=== PATIENT | female | born 1965 | race Caucasian/White ===

== ENCOUNTER 2017-09-20 12:27 | Day surgery (SDC) | payer OTHER ==
[2017-09-20 13:28] LABS: Absolute Lymphocytes (CBC) 1.7 K/uL (0.7-4.9); Absolute Monocytes 0.7 K/uL (0.1-1.3); Basophils % 0.4 % (0-1.3); Eosinophils % 1.6 % (0-4.4); Hematocrit 43.1 % (36.0-45.0); Lymphocytes % 17.2 % (15.3-44.8); MCH 30.6 pg (27.0-35.0); MCV 90.1 fL (80-100); MPV 8.5 fL (7.6-11.3); Monocytes % 7.8 % (3.3-12.3); RBC Red Blood Cell Count 4.78 M/uL (3.86-4.86)
[2017-09-20] MEDS ORDERED: KETOROLAC 30 MG/ML INJ ONE (13:36)
[2017-09-20 13:52] LABS: Urine Blood TRACE (NEG); Urine Glucose NEGATIVE (NEG); Urine Protein NEGATIVE (NEG)
[2017-09-20 14:08] LABS: Urine Bacteria 20-50 /HPF (<20)
[2017-09-20 14:09] LABS: Urine Culture Reflex Order NOT NEEDED
--- NOTE | 2017-09-20 14:10 | RAD REPORT ---
EXAM DESCRIPTION: CT - Stone Protocol - 09/20/2017 2:02 pm CLINICAL HISTORY: Left flank pain, history of kidney stones COMPARISON: None. TECHNIQUE: Axial 5 mm thick images were obtained without oral or IV contrast. The [id number] span s the entirety of the system partially obscuring uppermost abdomen and lung bases. All CT scans are performed using dose optimization technique as appropriate and may include automated exposure control or mA/KV adjustment according to patient size. FINDINGS: Moderate hydronephrosis of the left pelvis and calices secondary to an 11 millimeter UPJ c alculus. Left kidney is edematous with stranding in the adjacent fat. No other left-sided obstructing or nonobstructing calculi. Right kidney shows several 2- 3 millimeter sized caliceal calcifications. No right-sided hydronephrosis. No right-sided perinephric stranding. No suspicious renal masses. Iso dense masses and pyelonephritis are not excluded on a stone protocol CT scan. Urinary bladder is cont racted. No bladder calculi seen. Imaged portions of the liver, spleen and pancreas show no suspicious findings on non-contrast imaging . No gallbladder or biliary tree abnormality identified. No significant adrenal finding. No suspicious bowel findings. Uterus and ovaries show no suspicious findings. No hernia, mass or bulky lymphadenopathy noted. No free air, free fluid or inflammatory stranding. No significant bony abnormality. IMPRESSION: Moderate left-sided hydronephrosis of the pelvis and calices secondary to an 11 millimet er UPJ calculus. Isodense masses and pyelonephritis are not excluded on stone protocol technique.
[2017-09-20] MEDS ORDERED: FENTANYL CITR 100 MCG/2 ML ONE ×2 (14:16→16:25)
[2017-09-20 14:31] LABS: Albumin 4.5 g/dL (3.2-5.5); Bilirubin Direct 0.1 mg/dL (0-0.2); Bilirubin Total 0.8 mg/dL (0.3-1.2); Protein, Total 7.7 g/dL (6.0-8.3)
[2017-09-20] MEDS ORDERED: CEFTRIAXONE/SWI 1gm 1 GM/10 ML SYR ONE (14:32)
[2017-09-20] MEDS ORDERED: ONDANSETRON 4 MG/2 ML VIAL IV PRN (15:18)
[2017-09-20] MEDS ORDERED: ACETAMINOPHEN 500 MG TAB PO PRN (15:18)
--- NOTE | 2017-09-20 15:22 | ER ---
Nurse's Notes [facility] Name: Elisabeth Calvert Age: 51 yrs Sex: Female : 1965 Arrival Date: 09/20/2017 Time: 12:30 Bed 6 Private MD: Unknown, Unknown Diagnosis: Urinary tract infection, site not specified;Hydronephrosis with renal and ureteral calculous obstruction Presentation: 09/20 12:44 Presenting complaint: Patient states: Left flank pain that started suddenly this AM aj with nausea. Denies blood in urine. Transition of care: patient was not received from another setting of care. Onset of symptoms was September 20, 2017. Care prior to arrival: None. 12:44 Method Of Arrival: Ambulatory aj 12:44 Acuity: KENDAL 3 aj 13:10 Risk Assessment: Do you want to hurt yourself or someone else? Patient reports no sg desire to harm self or others. Initial Sepsis Screen: Does the patient meet any 2 criteria? No. Patient's initial sepsis screen is negative. Does the patient have a suspected source of infection? No. Patient's initial sepsis screen is negative. Triage Assessment: 12:45 General: Appears in no apparent distress. uncomfortable, Behavior is calm, cooperative, aj appropriate for age. Pain: Complains of pain in posterior aspect of left lateral abdomen and anterior aspect of left lateral abdomen. Neuro: Level of Consciousness is awake, alert, obeys commands, Oriented to person, place, time, situation, Appropriate for age. Respiratory: Reports shortness of breath Airway is patent Respiratory effort is even, unlabored, Respiratory pattern is regular, symmetrical, Onset: The symptoms/episode began/occurred gradually, the patient reports symptoms have resolved. GI: Reports nausea. : Reports pain in left flank(s). Derm: Skin is intact, is healthy with good turgor, Skin is pink, warm \T\ dry. normal. 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 - Social history:: Smoking status: Patient/guardian denies using tobacco. - Ebola Screening: : Patient negative for fever greater than or equal to 101.5 degrees Fahrenheit, and additional compatible Ebola Virus Disease symptoms Patient denies exposure to infectious person Patient denies travel to an Ebola-affected area in the 21 days before illness onset No symptoms or risks identified at this time. Screenin:50 Abuse screen: Denies threats or abuse. Denies injuries from another. Nutritional sg screening: No deficits noted. Tuberculosis screening: No symptoms or risk factors identified. Never had TB. Fall Risk None identified. Assessment: 13:37 Reassessment: Patient and/or family updated on plan of care and expected duration. Pain aa5 level reassessed. Patient is alert, oriented x 3, equal unlabored respirations, skin warm/dry/pink. call smith within reach, side rails x 1, bed in low position. . 14:25 General: Appears in no apparent distress. uncomfortable, well groomed, well developed, sg well nourished, Behavior is calm, cooperative, appropriate for age. Pain: Complains of pain in left flank and posterior aspect of left lateral abdomen. Neuro: No deficits noted. Cardiovascular: Heart tones S1 S2 present Capillary refill is brisk in bilateral fingers Patient's skin is warm and dry. Rhythm is sinus rhythm Chest pain is denied. Respiratory: Airway is patent Respiratory effort is even, unlabored, Respiratory pattern is regular, symmetrical, Breath sounds are clear. GI: No signs and/or symptoms were reported involving the gastrointestinal system. : Reports pain in left flank(s). EENT: No signs and/or symptoms were reported regarding the EENT system. Derm: Skin is pink, warm \T\ dry. Musculoskeletal: No signs and/or symptoms reported regarding the musculoskeletal system. 14:30 Reassessment: Patient appears in no apparent distress at this time. Patient and/or sg family updated on plan of care and expected duration. Pain level reassessed. Patient is alert, oriented x 3, equal unlabored respirations, skin warm/dry/pink. Patient states symptoms have not improved. 15:30 Reassessment: Patient appears in no apparent distress at this time. Patient and/or sg family updated on plan of care and expected duration. Pain level reassessed. Patient is alert, oriented x 3, equal unlabored respirations, skin warm/dry/pink. Patient states feeling better. 15:45 Reassessment: pt contacted per request, called , spke sg with updated on POC and need for sx today per , reports he is on his way back to facility, pt updated. Vital Signs: 12:45 BP 151 / 77; Pulse 69; Resp 17; Temp 97.6; Pulse Ox 99% on R/A; Weight 92.99 kg; Height aj 5 ft. 8 in. (172.72 cm); Pain 5/10; 12:45 Body Mass Index 31.17 (92.99 kg, 172.72 cm) aj ED Course: 12:30 Patient arrived in ED. sb2 12:31 Unknown, Unknown is Private Physician. sb2 12:45 Triage completed. aj 12:45 Arm band placed on left wrist. Patient placed in an exam room. aj 12:48 Jasiel Cárdenas PA is PHCP. jr8 12:48 Jeffrey Milian MD is Attending Physician. jr8 13:10 Patient has correct armband on for positive identification. Bed in low position. Call sg light in reach. Side rails up X2. Pulse ox on. NIBP on. Warm blanket given. Head of bed elevated. 13:23 Initial lab(s) drawn, by me, sent to lab. Urine collected: clean catch specimen, jb1 cloudy, arsalan colored. Inserted saline lock: 22 gauge in right antecubital area, using aseptic technique. Blood collected. 14:03 CT Stone Protocol In Process Unspecified. EDMS 14:08 Connor Almodovar, WEI is Primary Nurse. sg 15:21 Jasiel Cárdenas PA is Hospitalizing Provider. jr8 15:32 X-ray completed. Portable x-ray completed in exam room. Patient tolerated procedure la2 well. 16:00 No provider procedures requiring assistance completed. Patient admitted, IV remains in sg place. intact, No redness/swelling at site. Administered Medications: 13:37 Drug: TORadol 30 mg Route: IVP; Site: right antecubital; aa5 14:00 Follow up: Response: No adverse reaction; Pain is unchanged, physician notified sg 14:25 Drug: fentaNYL (PF) 50 mcg Route: IVP; Site: right antecubital; sg 15:30 Follow up: Response: No adverse reaction; Pain is decreased sg 14:33 Drug: Rocephin 1 grams Route: IV; Rate: calculated rate; Site: right antecubital; sg 15:30 Follow up: Response: No adverse reaction; IV Status: Completed infusion sg Outcome: 15:22 Decision to Hospitalize by Provider. jr8 16:00 Admitted to accompanied by nurse, via wheelchair, with chart, Report called to bedside sg report given to [facility] nurse 16:00 Condition: stable 16:00 Instructed on the need for admit, safety practices, Demonstrated understanding of instructions. 16:17 Patient left the ED. sg Signatures: Dispatcher [employer] EDMS Desean Diaz jb1 Connor Almodovar RN RN Eusebia Dooley RN RN aj Calderon, Audri, RN RN luis5 Jasiel Cárdenas PA PA jr8 Stephanie Bullock2 Davina Mancia2
--- NOTE | 2017-09-20 15:23 | EDPHYS ---
Physician Documentation [facility] Name: Elisabeth Calvert Age: 51 yrs Sex: Female : 1965 Arrival Date: 09/20/2017 Time: 12:30 Bed 6 Private MD: Unknown, Unknown ED Physician Jeffrey Milian HPI: 09/20 15:15 This 51 yrs old Female presents to ER via Ambulatory with complaints of jr8 Shortness Of Breath, SIDE PAIN. 15:15 The patient complains of pain in the left flank. The pain does not radiate. Onset: The jr8 symptoms/episode began/occurred acutely, today. Modifying factors: The symptoms are alleviated by nothing. the symptoms are aggravated by nothing. Associated signs and symptoms: Pertinent positives: nausea. Severity of pain: At its worst the pain was moderate in the emergency department the pain is unchanged. The patient has experienced a previous episode. The patient has not recently seen a physician. history of renal stones in past. Started with left flank pain this morning that is not getting better . 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 - Social history:: Smoking status: Patient/guardian denies using tobacco. - Ebola Screening: : Patient negative for fever greater than or equal to 101.5 degrees Fahrenheit, and additional compatible Ebola Virus Disease symptoms Patient denies exposure to infectious person Patient denies travel to an Ebola-affected area in the 21 days before illness onset No symptoms or risks identified at this time. ROS: 15:15 Eyes: Negative for injury, pain, redness, and discharge, ENT: Negative for injury, jr8 pain, and discharge, Neck: Negative for injury, pain, and swelling, Cardiovascular: Negative for chest pain, palpitations, and edema, Respiratory: Negative for shortness of breath, cough, wheezing, and pleuritic chest pain, Abdomen/GI: Negative for abdominal pain, nausea, vomiting, diarrhea, and constipation, MS/Extremity: Negative for injury and deformity, Skin: Negative for injury, rash, and discoloration, Neuro: Negative for headache, weakness, numbness, tingling, and seizure. 15:15 Back: Positive for flank pain, on the left. Exam: 15:15 Eyes: Pupils equal round and reactive to light, extra-ocular motions intact. Lids and jr8 lashes normal. Conjunctiva and sclera are non-icteric and not injected. Cornea within normal limits. Periorbital areas with no swelling, redness, or edema. ENT: Nares patent. No nasal discharge, no septal abnormalities noted. Tympanic membranes are normal and external auditory canals are clear. Oropharynx with no redness, swelling, or masses, exudates, or evidence of obstruction, uvula midline. Mucous membranes moist. Neck: Trachea midline, no thyromegaly or masses palpated, and no cervical lymphadenopathy. Supple, full range of motion without nuchal rigidity, or vertebral point tenderness. No Meningismus. Cardiovascular: Regular rate and rhythm with a normal S1 and S2. No gallops, murmurs, or rubs. Normal PMI, no JVD. No pulse deficits. Respiratory: Lungs have equal breath sounds bilaterally, clear to auscultation and percussion. No rales, rhonchi or wheezes noted. No increased work of breathing, no retractions or nasal flaring. Abdomen/GI: Soft, non-tender, with normal bowel sounds. No distension or tympany. No guarding or rebound. No evidence of tenderness throughout. Skin: Warm, dry with normal turgor. Normal color with no rashes, no lesions, and no evidence of cellulitis. MS/ Extremity: Pulses equal, no cyanosis. Neurovascular intact. Full, normal range of motion. Neuro: Awake and alert, GCS 15, oriented to person, place, time, and situation. Cranial nerves II-XII grossly intact. Motor strength 5/5 in all extremities. Sensory grossly intact. Cerebellar exam normal. Normal gait. 15:15 Back: pain, that is mild, of the left flank, ROM is normal, normal spinal alignment noted, CVA tenderness, is absent, vertebral tenderness, is not appreciated. Vital Signs: 12:45 BP 151 / 77; Pulse 69; Resp 17; Temp 97.6; Pulse Ox 99% on R/A; Weight 92.99 kg; Height aj 5 ft. 8 in. (172.72 cm); Pain 5/10; 12:45 Body Mass Index 31.17 (92.99 kg, 172.72 cm) aj MDM: 12:48 Patient medically screened. [facility] 15:15 Data reviewed: vital signs, nurses notes, lab test result(s), radiologic studies, CT [facility] scan, and as a result, I will admit patient. Data interpreted: Pulse oximetry: on room air is 99 %. Interpretation: normal. Counseling: I had a detailed discussion with the patient and/or guardian regarding: the historical points, exam findings, and any diagnostic results supporting the discharge/admit diagnosis, lab results, radiology results, the need for further work-up and treatment in the hospital. Physician consultation: Bianca Comer MD was called at 15:21, was contacted at 15:21, regarding admission, to the medical/surgical unit. consult, patient's condition, and will see patient. ED course: Dr. George consulted. Will see patient and bring to OR for stent . 09/20 12:54 Order name: Basic Metabolic Panel; Complete Time: 14:45 [facility] 09/20 12:54 Order name: CBC with Diff; Complete Time: 13:36 [facility] 09/20 12:54 Order name: Creatinine for Radiology; Complete Time: 14:15 [facility] 09/20 12:54 Order name: Hepatic Function; Complete Time: 14:45 [facility] 09/20 13:23 Order name: Urine Microscopic Only; Complete Time: 14:15 [facility] 09/20 13:23 Order name: Urine Culture [facility] 09/20 12:54 Order name: CT Stone Protocol; Complete Time: 14:15 [facility] 09/20 13:28 Order name: Urine Dipstick--Ancillary (enter results); Complete Time: 14:03 em1 09/20 15:14 Order name: XRAY KUB [facility] 09/20 15:20 Order name: CONS Physician Consult [facility] 09/20 15:20 Order name: Urinalysis [facility] 09/20 12:54 Order name: IV Saline Lock; Complete Time: 13:22 [facility] 09/20 12:54 Order name: Labs collected and sent; Complete Time: 13:22 [facility] 09/20 12:54 Order name: Urine Dipstick-Ancillary (obtain specimen); Complete Time: 13:22 [facility] 09/20 15:20 Order name: NPO EDPA Administered Medications: 13:37 Drug: TORadol 30 mg Route: IVP; Site: right antecubital; aa5 14:00 Follow up: Response: No adverse reaction; Pain is unchanged, physician notified sg 14:25 Drug: fentaNYL (PF) 50 mcg Route: IVP; Site: right antecubital; sg 15:30 Follow up: Response: No adverse reaction; Pain is decreased sg 14:33 Drug: Rocephin 1 grams Route: IV; Rate: calculated rate; Site: right antecubital; sg 15:30 Follow up: Response: No adverse reaction; IV Status: Completed infusion sg Disposition: 17:31 Co-signature as Attending Physician, Jeffrey Milian MD. rn Disposition: 09/20/17 15:22 Hospitalization ordered by Jasiel Cárdenas for Observation. Preliminary diagnosis are Urinary tract infection, site not specified, Hydronephrosis with renal and ureteral calculous obstruction. - Bed requested for Telemetry/MedSurg (observation). - Status is Observation. sg - Condition is Stable. - Problem is new. - Symptoms have improved. UTI on Admission? Yes Signatures: Dispatcher [employer] EDMS Connor Almodovar RN Eusebia Mills RN Jeffrey Park MD MD rn Calderon, Audri RN WEI aa5 Jasiel Cárdenas PA PA jr8 Corrections: (The following items were deleted from the chart) 16:17 15:22 Hospitalization Ordered by Jasiel CASANOVA for Observation. Preliminary diagnosis sg is Urinary tract infection, site not specified; Hydronephrosis with renal and ureteral calculous obstruction. Bed requested for Telemetry/MedSurg (observation). Status is Observation. Condition is Stable. Problem is new. Symptoms have improved. UTI on Admission? Yes. jr8
[2017-09-20] MEDS ORDERED: NA CHLORIDE 0.9% 1,000 ML IV SCH (16:00)
--- NOTE | 2017-09-20 16:20 | RAD REPORT ---
EXAM DESCRIPTION: RAD - Abdomen 1 View (KUB) - 09/20/2017 3:36 pm CLINICAL HISTORY: Left flank pain, known kidney stone COMPARISON: CT study same date FINDINGS: Patient has a known 11 millimeter obstructing calculus at the left UPJ. That stone is iden tifiable on KUB imaging. There is an 11 millimeter oval calcification superimposed on the left transv erse process at L2. This corresponds in size and location to the obstructing calculus. No other calci fications seen. Bowel gas pattern is nonspecific. No free air or pneumatosis. No obstruction. No significant bony findings IMPRESSION: The obstructing UPJ calculus seen on the CT study is identifiable on this examination. Obstructing calculus is seen superimposed on the left transverse process of L2.
--- NOTE | 2017-09-20 16:23 | P.CNS ---
Date of Consult: 09/20/17 HPI: This is a 51-year-old female with no significant past medical history who presented to the ED complaining of having some left lower left flank pain which started this morning. Pain at its worst is about 10/10 and was cramping in nature. Patient stated that her pain radiated in the front where she was having some abdominal discomfort and bloating as well. Patient stated that she also had nausea no vomiting was noted. Patient stated that about 3 weeks ago she felt like she passed another stone at that time and did not feel like she needed to come to the ER. However this time her pain was on bearable and decided to come to the ER to get a further checked out. Patient had a CT scan done here in the hospital which was consistent with left UPJ nephrolithiasis. Medicine team was thus consulted to admit the patient for further care. Urology was also consulted for in stent placement with cystoscopy. ROS: Negative except as marked by HPI Physical Exam: Vitals: Stable Gen: Alert and oriented x3, not in any acute distress. Obese female. Cardiovascular: Regular rate and rhythm with a normal S1 and S2. No gallops, murmurs, or rubs. Normal PMI, no JVD. Respiratory: Lungs have equal breath sounds bilaterally, clear to auscultation and percussion. Abdomen/GI: Soft, non-tender, with normal bowel sounds. MS/ Extremity: Pulses equal, no cyanosis. Back: CVA tenderness on the left flank region Lab work: 09/20/17 13:28: Urine pH 6.0, Ur Specific [place] 1.010, Urine Ketones Negative , Urine Blood Trace H, Urine Nitrite Negative, Ur Leukocyte Esterase 1+ H, Urine Glucose Negative, Urine Total Protein Negative 09/20/17 13:15: Urine RBC 5-10 H, Urine WBC 20-50 H, Ur Squamous Epith Cells > 50 H, Urine Bacteria 20-50 H, Urine Culture Reflexed Not needed 09/20/17 13:15: Creatinine 0.90 09/20/17 13:15: WBC 9.6, RBC 4.78, Hgb 14.6, Hct 43.1, MCV 90.1, MCH 30.6, MCHC 34.0, RDW 12.7, Plt Count 235, MPV 8.5, Neutrophils % 73.0, Lymphocytes % 17.2, Monocytes % 7.8, Eosinophils % 1.6, Basophils % 0.4, Absolute Neutrophils 7.0, Absolute Lymphocytes 1.7, Absolute Monocytes 0.7, Absolute Eosinophils 0.2, Absolute Basophils 0.0 09/20/17 13:15: Sodium 136, Potassium 4.0, Chloride 104, Carbon Dioxide 26, BUN 19, Creatinine 1.00, Estimated GFR 58 L, Glucose 92, Calcium 9.7, Total Bilirubin 0.8, Direct Bilirubin 0.1, AST 17, ALT 14, Alkaline Phosphatase 80, Serum Total Protein 7.7, Albumin 4.5, Globulin 3.2, Albumin/Globulin Ratio 1.4 Assessment/Plan 1. Left-sided UPT nephrolithiasis - Patient was assessed at bedside and initially the plan was to admit the patient under obs, however, urology assessed the patient at bedside and pt was stable for procedure today and thus a decision was made that patient can have cystoscopy done today and can be discharged post cystoscopy with PO abx and Pain medication. Patient will be discharged from the ER.
[2017-09-20] MEDS ORDERED: MIDAZOLAM HCL 2 MG/2 ML INJ ONE (16:25)
[2017-09-20] MEDS ORDERED: PROPOFOL 200 MG/20 ML VIAL IV ONE (16:25)
[2017-09-20] MEDS ORDERED: LIDOCAINE 2% MPF 5 ML VIAL ONE (16:25)
[2017-09-20] MEDS ORDERED: METOCLOPRAMIDE 10 MG/2mL INJ ONE (16:26)
[2017-09-20] MEDS: Ringers Lactate 1,000 ML IV ONE ×2 (16:29→16:30)
--- NOTE | 2017-09-20 17:08 | RAD REPORT ---
EXAM DESCRIPTION: RAD - Urethrocystogrphy Retrograde - 09/20/2017 5:00 pm CLINICAL HISTORY: Left sided ureter stent placement. COMPARISON: None. FINDINGS: Fluoroscopy of the abdomen is submitted as part of a left-sided retrograde ureter stent pl acement. Details of the procedure are not available.
[2017-09-20] MEDS ORDERED: MEPERIDINE HCL 50 MG/ML AMP ONE (17:15)
--- NOTE | 2017-09-20 18:57 | CON ---
History Of Present Illness: This is a 51-year-old lady with good state of health until about a month ago. She may have passed a small stone on the left, but never really had a workup and this morning she began having severe left flank pain. Her brought her to emergency room. She said her pain was a 10/10 at least. Has some nausea, but no vomiting. No fever or chills, diarrhea, constipation. She has never previously had stones prior to the episode a month ago. Past Medical History: Significant for hypothyroid, colon polyps. Denies coronary artery disease or any history of diabetes. Past Surgical History: Tonsillectomy. Medications: Naprosyn and levothyroxine. Allergies: NO KNOWN DRUG ALLERGIES. Social History: Denies tobacco, smoking, alcohol, or drug abuse. Family History: Lives with her at home. Review of Systems: Otherwise negative. Physical Examination: Vital Signs: She is afebrile, stable. HEENT: Atraumatic, normocephalic. Lungs: Clear. Heart: S1, S2. Abdomen: Soft, nontender. Extremities: Normal range of motion. Diagnostic Data: CT scan revealed an 11 mm UPJ stone. Left kidney was edematous, stranding. Right kidney shows several 2 to 3 mm sized calcifications. Her white count normal at 9.6, H and H 14 and 43, platelet count 235. Chemistry shows sodium 136, potassium 4.0, chloride 104, carbon dioxide 26, BUN 19, creatinine 1.0, GFR 58, glucose 92, calcium 9.7. Bili is normal. LFTs normal. Alk phos normal. Urine shows 5-10 rbc's, white cells 20- 50, squamous cells 150, bacteria greater than 50% of contamination. Assessment: An 11 mm left kidney stone causing severe pain. Responded somewhat to Toradol. Had been given narcotic along with that. She is going to go for cystoscopy, left retrograde pyelogram, left double-J stent placement. All the general information, alternatives, and risks were given. She wishes to proceed. Hopefully, she will go home after this. KINGA/MODMony Voice ID: [id number] Report ID: [id number]
[2017-09-21] MEDS ORDERED: CEFTRIAXONE/SWI 1gm 1 GM/10 ML SYR IVP SCH (09:00)
== END 2017-09-20 18:05 | disposition home or self-care (01) ==
LOC: ER 12:27 → ERHOLD 15:19 → UNDOADMOB 15:19 → OR 16:00
PROVIDERS: ATTEND Urology
PROC: 0T778DZ Dilation of Left Ureter with Intraluminal Device, Via Natural or Artificial Opening Endoscopic (ICD-10-PCS; 2017-09-20)
PROC: BT1FZZZ Fluoroscopy of Left Kidney, Ureter and Bladder (ICD-10-PCS; principal; 2017-09-20 16:00)
DX: N20.0 Calculus of kidney (principal); Q62.39 Other obstructive defects of renal pelvis and ureter; E03.9 Hypothyroidism, unspecified; Z86.010 Personal history of colon polyps
CPT/HCPCS: 36415; 51610; 74018; 74176; 74450; 76377; 80048; 80076; 81003; 81015; 85025; 87086; 87088; 96365; 96375; 99285; J0696; J2175; J2250; J2765; J3010; Q9967

== ENCOUNTER 2017-09-26 08:01 | Day surgery (SDC) | payer OTHER ==
[2017-09-26] MEDS ORDERED: Ringers Lactate 1,000 ML IV ONE (08:10)
[2017-09-26] MEDS ORDERED: GENTAMICIN 80 MG/100 ML BAG 80 MG/100 ML BAG IV ONE (08:10)
[2017-09-26 08:56] LABS: Potassium 3.9 mEq/L (3.6-5.0)
[2017-09-26 09:06] LABS: Absolute Lymphocytes (CBC) 1.3 K/uL (0.7-4.9); Absolute Monocytes 0.4 K/uL (0.1-1.3); Absolute Neutrophil 2.6 K/uL (1.8-8.0); Basophils % 0.7 % (0-1.3); Eosinophils % 3.9 % (0-4.4); Hematocrit 44.1 % (36.0-45.0); MCH 30.2 pg (27.0-35.0); MCV 91.1 fL (80-100); MPV 8.5 fL (7.6-11.3); Monocytes % 7.9 % (3.3-12.3); RBC Red Blood Cell Count 4.84 M/uL (3.86-4.86)
--- NOTE | 2017-09-26 09:28 | RAD REPORT ---
EXAM DESCRIPTION: Amita Saez (2 Views)09/26/2017 8:42 am CLINICAL HISTORY: Abd pain/preop COMPARISON: 2010 FINDINGS: The lungs appear clear of acute infiltrate. The heart is normal size IMPRESSION: No acute abnormalities displayed
[2017-09-26 09:48] LABS: Urine Appearance CLOUDY; Urine Bilirubin NEGATIVE (NEG); Urine Blood 3+ (NEG); Urine Color YELLOW; Urine Glucose NEGATIVE (NEG); Urine Protein 1+ (NEG); Urine Urobilinogen 0.2 mg/dL (0.2-1.0)
--- NOTE | 2017-09-26 10:01 | RAD REPORT ---
EXAM DESCRIPTION: RAD - Abdomen 1 View (KUB) - 09/26/2017 8:42 am CLINICAL HISTORY: Abdomen pain. ICD N 20.0 FINDINGS: The bowel gas pattern is unremarkable. A ureteral stent has been placed. A 4 millimeter calcification lies along the inferior aspect of the pigtail which likely represents the UPJ calculus which has migrated into the renal pelvis
[2017-09-26 10:15] LABS: Urine Microscopic Reflex ORDER UMIC
[2017-09-26 10:28] LABS: Urine Bacteria <20 /HPF (<20); Urine Culture Reflex Order NOT NEEDED; Urine RBC 20-50 /HPF (NONE SEEN)
[2017-09-26] MEDS ORDERED: MIDAZOLAM HCL 2 MG/2 ML INJ ONE (11:01)
[2017-09-26] MEDS ORDERED: PROPOFOL 200 MG/20 ML VIAL IV ONE (11:01)
[2017-09-26] MEDS ORDERED: FENTANYL CITR 100 MCG/2 ML ONE (11:02)
[2017-09-26] MEDS ORDERED: ONDANSETRON HCL 40 MG/20 ML VIAL ONE (11:03)
[2017-09-26] MEDS ORDERED: HYDROCODONE/APAP 10/325 TAB ONE (13:00)
--- NOTE | 2017-09-26 15:01 | EKG ---
Test Date: 2017-09-26 Test Time: 08:43:11 Materials Handling Coordinator: [place] MEASUREMENT RESULTS: Intervals: Rate: 62 FL: 140 QRSD: 86 QT: 392 QTc: 397 [place]: P: 58 FL: 140 QRS: 20 T: 12 INTERPRETIVE STATEMENTS: Normal sinus rhythm Normal ECG Compared to ECG 06/24/2010 15:29:03 No significant changes Electronically Signed On 09-26-17 14:59:06 CDT by Neil Toscano
== END 2017-09-26 13:47 | disposition home or self-care (01) ==
LOC: OR 08:01
PROVIDERS: ATTEND Urology
PROC: 0TF4XZZ Fragmentation in Left Kidney Pelvis, External Approach (ICD-10-PCS; principal; 2017-09-26 10:30)
DX: N20.0 Calculus of kidney (principal); N35.9 Urethral stricture, unspecified; Q62.39 Other obstructive defects of renal pelvis and ureter; E03.9 Hypothyroidism, unspecified; Z86.010 Personal history of colon polyps; Z80.0 Family history of malignant neoplasm of digestive organs
CPT/HCPCS: 36415; 50590; 71046; 74018; 80048; 81003; 81015; 85025; 85610; 85730; 87086; 87088; 93005; J1580; J2250; J2405; J3010

== ENCOUNTER 2024-01-17 06:39 | Day surgery (SDC) | payer OTHER ==
[2024-01-16 11:42] LABS: Absolute Eosinophils 0.1 K/uL (0-0.5); Absolute Monocytes 0.4 K/uL (0.1-1.3); Absolute Neutrophil 3.6 K/uL (1.8-8.0); Basophils % 0.8 % (0-1.3); Eosinophils % 2.1 % (0-4.4); Hematocrit 45.3 % (36.0-45.0); Hemoglobin 15.2 g/dL (12.0-15.0); Lymphocytes % 32.4 % (15.3-44.8); MCH 30.4 pg (27.0-35.0); MCHC 33.5 g/dL (32.0-36.0); MCV 90.8 fL (80-100); MPV 7.6 fL (7.6-11.3); Monocytes % 6.3 % (3.3-12.3); Neutrophils % 58.4 % (41.7-73.7); Nucleated Red Blood Cells % 0.1 % (0-0); Platelets 261 thou/uL (152-406); RBC Red Blood Cell Count 4.98 M/uL (3.86-4.86); Red Cell Distribution Width 13.5 % (12.1-15.2)
[2024-01-16 11:51] LABS: Anion Gap 8.1 mEq/L (5.0-15.0); Potassium 4.1 mEq/L (3.5-5.1)
--- NOTE | 2024-01-16 16:54 | EKG ---
Test Date: 2024-01-16 Test Time: 11:19:14 Surgical Technologist: ALEXIS MEASUREMENT RESULTS: Intervals: Rate: 66 TN: 142 QRSD: 84 QT: 406 QTc: 425 [place]: P: 27 TN: 142 QRS: -4 T: 15 INTERPRETIVE STATEMENTS: Normal sinus rhythm Possible Left atrial enlargement Left ventricular hypertrophy Abnormal ECG Compared to ECG 09/26/2017 08:43:11 Left ventricular hypertrophy now present Electronically Signed On 01-16-24 16:54:19 CDT by Sabino Yeboah
[2024-01-17] MEDS ORDERED: Ringers Lactate 1,000 ML IV ONE (06:50)
[2024-01-17] MEDS ORDERED: propofoL 200 MG/20 ML VIAL IV ONE ×2 (08:25→08:26)
[2024-01-17] MEDS ORDERED: LIDOCAINE 1% MPF 5 ML VIAL ONE (08:25)
[2024-01-17 09:55] VITALS: BP 141/72; TEMP 97.4; O2SAT 100
== END 2024-01-17 09:40 | disposition home or self-care (01) ==
LOC: OR 06:39
PROVIDERS: ATTEND Surgery
PROC: 0DBM8ZX Excision of Descending Colon, Via Natural or Artificial Opening Endoscopic, Diagnostic (ICD-10-PCS; principal; 2024-01-17 08:15)
DX: Z12.11 Encounter for screening for malignant neoplasm of colon (principal); K57.30 Diverticulosis of large intestine without perforation or abscess without bleeding; K64.4 Residual hemorrhoidal skin tags; K64.8 Other hemorrhoids; D12.4 Benign neoplasm of descending colon; Z86.010 Personal history of colon polyps
CPT/HCPCS: 36415; 80048; 85025; 88305; 93005; J2001; J2704; J7120